=== PATIENT | female | born 1945 | race Caucasian/White ===

== ENCOUNTER 2022-05-20 12:44 | Inpatient (IN) | payer MEDICARE ==
[2022-05-20] MEDS ORDERED: SODIUM CHLORIDE 0.9% 1000 ML 1,000 ML IV ONE (13:02)
[2022-05-20] MEDS ORDERED: MORPHINE 4 MG/1 ML INJ IV ONE (13:04)
[2022-05-20] MEDS ORDERED: ONDANSETRON 4 MG/2 ML INJ IV ONE ×2 (13:04→16:29)
--- NOTE | 2022-05-20 13:31 | XRay Report ---
XR chest 1V ap INDICATION / CLINICAL INFORMATION: Chest Pain. COMPARISON: None available. FINDINGS: SUPPORT DEVICES: None. HEART /PULMONARY VASCULATURE: No significant abnormality. LUNGS / PLEURA: Diminished lung volumes with bronchovascular crowding. No focal airspace consolidatio n. No sizable pleural effusion. No pneumothorax. ADDITIONAL FINDINGS: No significant additional findings. IMPRESSION: Suboptimal inspiration. No evidence of acute chest process. Signer Name: Ross Bucio MD Signed: 05/20/2022 1:27 PM Workstation Name: [id number]
[2022-05-20 14:38] LABS: Basophils % (Auto) 0.1 % (0.0-1.8); Eosinophils % (Auto) 0.3 % (0.0-4.3); Hematocrit 38.9 % (30.3-42.9); Hemoglobin 13.1 gm/dl (10.1-14.3); Lymphocytes # (Auto) 1.1 K/mm3 (1.2-5.4); Lymphocytes % (Auto) 6.7 % (13.4-35.0); Mean Corpuscular HGB Conc 34 % (30-34); Mean Corpuscular Volume 93 fl (79-97); Monocytes # (Auto) 0.8 K/mm3 (0.0-0.8); Monocytes % (Auto) 4.9 % (0.0-7.3); Platelet Count 218 K/mm3 (140-440); Red Blood Count 4.21 M/mm3 (3.65-5.03); Red Cell Distribution Width 13.2 % (13.2-15.2)
[2022-05-20 14:41] LABS: INR 0.93 (0.87-1.13)
[2022-05-20 15:15] LABS: Alanine Aminotransferase 17 units/L (7-56); Albumin 3.8 g/dL (3.9-5); Blood Urea Nitrogen 18 mg/dL (7-17); Calcium 8.6 mg/dL (8.4-10.2); Hemolysis Index 32
[2022-05-20 15:22] LABS: BUN/Creatinine Ratio 36
[2022-05-20] MEDS ORDERED: POTASSIUM CHLORIDE ER 20 MEQ TAB PO ONE (17:07)
[2022-05-20] MEDS ORDERED: MECLIZINE 25 MG TAB PO ONE (17:07)
[2022-05-20 17:24] LABS: C-Reactive Protein < 0.30 mg/dL (0.00-1.30)
[2022-05-20 17:34] LABS: Mucus,Urine FEW /HPF; WBC,Urine < 1.0 /HPF (0.0-6.0)
[2022-05-20 17:37] LABS: Amphetamine Screen,Urine Negative; Benzodiazepines Screen,Urine Negative; Cannabinoid Screen,Urine Negative; Cocaine Screen,Urine Negative; Methadone Screen,Urine Negative; Opiate Screen,Urine Negative
[2022-05-20 17:40] LABS: Color,Urine Straw (Yellow)
[2022-05-20 17:41] LABS: Bilirubin,Urine Negative (Negative); Blood,Urine Negative (Negative); Protein,Urine <15 mg/dL mg/dL (Negative); Urobilinogen,Urine < 2.0 mg/dL (<2.0)
--- NOTE | 2022-05-20 18:44 | History and Physical Report ---
History of Present Illness Chief complaint: She is weak History of present illness: 77 YO Female with Vascular Dementia, Cerebral Atherosclerosis, HTN, Malnutrition presents to ED for evaluation. Patient is confused with diminished cognition and provides minimal history. Patient reports "I feel dizzy". Additional h istory provided by EMS staff, ED staff, as well as patient family was at bedside during exam and interview. Patient granddaughter reports that patient has experienced increased weakness, diminished oral intake, nausea, and multiple episodes of vomiting, and multiple episodes of dizziness over the past 2 days. EMS was notified and upon arrival the patient was found to be in distress and subsequently transported to [facility] for further care and evaluation of the aforementioned symptoms. The patient was seen and evaluated in the emergency department. All lab and imaging studies reviewed. Patient found to have suprapubic tenderness as well as clinical findings consistent with urinary tract infection complicated by systemic inflammatory response syndrome, metabolic encephalopathy, and malnutrition. Patient admitted to medical floor and initiated on IV antibiotic therapy due to increased risk of worsening symptoms and for medical stabilization. No further history is obtainable. No reports of fever, chills, chest pain, palpitation, productive cough, skin rash, recent contact, known exposure to COVID-19. No prior admission for review. No medication listed at time of admission for reconciliation. Advanced care planning conducted in ED. Past History Past Medical History: hypertension Past Surgical History: No surgical history, Other (Reviewed) Social history: , lives with family. denies: smoking, alcohol abuse, prescription drug abuse Family history: hypertension Medications and Allergies Allergies Allergy/AdvReac Type Severity Reaction Status Date / Time No Known Allergies Allergy Unverified 05/20/22 12:54 Review of Systems ROS unobtainable: due to mental status Exam - Constitutional Vitals: Temp Pulse Resp BP Pulse Ox 97.4 F L 54 L 14 150/79 100 05/20/22 12:49 05/20/22 16:15 05/20/22 16:15 05/20/22 16:15 05/20/22 16:15 General appearance: Present: mild distress - EENT Eyes: Present: PERRL ENT: hearing intact, clear oral mucosa - Neck Neck: Present: supple, normal ROM - Respiratory Respiratory effort: normal Respiratory: bilateral: CTA - Cardiovascular Heart Sounds: Present: S1 & S2. Absent: rub, click - Extremities Extremities: pulses symmetrical, No edema Peripheral Pulses: within normal limits - Abdominal General gastrointestinal: Present: soft, tender Localized gastrointestinal: tender: suprapubic Female genitourinary: Present: normal - Integumentary Integumentary: Present: clear, dry, clammy, decreased turgor - Musculoskeletal Musculoskeletal: generalized weakness - Psychiatric Psychiatric: no appropriate mood/affect, no intact judgment & insight, no memory intact HEART Score - HEART Score Troponin: Troponin T < 0.010 ng/mL (0.00-0.029) 05/20/22 13:31 Results - Labs CBC & Chem 7: 05/20/22 13:31 05/20/22 13:31 Labs: Abnormal lab results 05/20/22 05/20/22 Range/Units 13:31 13:31 WBC 16.1 H (4.5-11.0) K/mm3 Lymph % (Auto) 6.7 L (13.4-35.0) % Lymph # (Auto) 1.1 L (1.2-5.4) K/mm3 Seg Neutrophils % 88.0 H (40.0-70.0) % Seg Neutrophils # 14.2 H (1.8-7.7) K/mm3 Potassium 3.0 L (3.6-5.0) mmol/L BUN 18 H (7-17) mg/dL Creatinine 0.5 L (0.6-1.2) mg/dL Glucose 149 H (65-100) mg/dL Albumin 3.8 L (3.9-5) g/dL Assessment and Plan - Patient Problems (1) SIRS (systemic inflammatory response syndrome) Current Visit: Yes Status: Acute Plan to address problem: IV antibiotic therapy, CBC, CMP, chest x-ray, urinalysis, IV fluid resuscitation therapy, repeat CBC in AM. (2) UTI (urinary tract infection) Current Visit: Yes Status: Acute Qualifiers: Encounter type: initial encounter Plan to address problem: Urinalysis, IV antibiotic therapy, IV fluid resuscitation therapy. (3) Metabolic encephalopathy Current Visit: Yes Status: Acute Plan to address problem: CT scan head, neuro check, seizure precaution, aspiration precaution, fall precautions, regular resuscitation therapy. (4) Volume depletion Current Visit: Yes Status: Acute Plan to address problem: BMP, IV fluid resuscitation therapy, urine output every shift, monitor fluid balance, repeat BMP in AM. (5) Malnutrition Current Visit: Yes Status: Acute Qualifiers: Protein-calorie malnutrition severity: mild Plan to address problem: Increase protein intake, dietary supplementation. (6) Vascular dementia Current Visit: Yes Status: Acute Qualifiers: Dementia behavioral disturbance: without behavioral disturbance Qualified Code(s): F01.50 - Vascular dementia without behavioral disturbance Plan to address problem: Verbal prompting, verbal redirection, benzodiazepine therapy as clinically indicated. (7) Cerebral atherosclerosis Current Visit: Yes Status: Acute Plan to address problem: Risk factor reduction, antiplatelet therapy as clinically indicated (8) DVT prophylaxis Current Visit: Yes Status: Acute Plan to address problem: SCD to bilateral lower extremities while in bed (9) Advance care planning Current Visit: Yes Status: Acute Plan to address problem: Disease education data, care plan discussed, diagnosis discussed, prognosis discussed, patient is full code. Patient family acknowledges understanding agreement with care plan, +30 minutes. (10) Preventative health care Current Visit: Yes Status: Acute Plan to address problem: Patient family counseled regarding risk factor reduction, home safety, out patient follow-up with primary care physician for all age and risk factor appropriate screening test. +30 minutes.
[2022-05-20] MEDS ORDERED: oxyCODONE /ACETAMINOPHEN 5-325MG TAB PO PRN (19:16)
[2022-05-20] MEDS ORDERED: HYDROmorphone 0.5 MG/0.5 ML INJ IV PRN (19:16)
[2022-05-20] MEDS ORDERED: ALBUTEROL 2.5 MG/3 ML NEBU IH PRN (19:16)
[2022-05-20] MEDS ORDERED: ONDANSETRON 4 MG/2 ML INJ IV PRN (19:16)
[2022-05-20] MEDS: cefTRIAXone/NS 1 GM/50 ML 1 GM/50 ML BAG IV SCH (19:54)
--- NOTE | 2022-05-20 19:54 | Emergency Department Report ---
ED General Adult HPI - General Chief complaint: Nausea/Vomiting/Diarrhea Stated complaint: NAUSEA/VOMITING/BLURRED VISION PUI?: No Time Seen by Provider: 05/20/22 12:59 Source: EMS Mode of arrival: Stretcher Limitations: Language Barrier - History of Present Illness Initial comments: N/V, blurred vision x 2 days, GONZALES, dizziness history is obtained from Grand daughter , she started having nausea nd vomiting without abdominal pain , she feels dizzy , , unable to stand up -: Gradual, hour(s) Severity scale (0 -10): 8 Improves with: none Worsens with: none Associated Symptoms: headaches, nausea/vomiting, weakness. denies: denies other symptoms, confusion, chest pain, cough - Related Data Allergies Allergy/AdvReac Type Severity Reaction Status Date / Time No Known Allergies Allergy Unverified 05/20/22 12:54 ED Review of Systems ROS: Stated complaint: NAUSEA/VOMITING/BLURRED VISION Other details as noted in HPI Comment: Unobtainable due to pts medical conditions ED Past Medical Hx - Past Medical History Previous Medical History?: Yes Hx Hypertension: Yes - Surgical History Past Surgical History?: No ED Physical Exam - General Limitations: Language Barrier General appearance: alert, in distress - Head Head exam: Present: atraumatic, normocephalic - Eye Eye exam: Present: normal appearance - ENT ENT exam: Present: mucous membranes moist - Neck Neck exam: Present: normal inspection - Respiratory Respiratory exam: Present: normal lung sounds bilaterally. Absent: respiratory distress - Cardiovascular Cardiovascular Exam: Present: normal rhythm, bradycardia. Absent: systolic murmur, diastolic murmur, rubs, gallop - GI/Abdominal GI/Abdominal exam: Present: soft, normal bowel sounds - Extremities Exam Extremities exam: Present: normal inspection - Back Exam Back exam: Present: normal inspection - Neurological Exam Neurological exam: Present: alert, oriented X3 - Psychiatric Psychiatric exam: Present: anxious - Skin Skin exam: Present: warm, dry, intact, normal color. Absent: rash ED Course Vital Signs 05/20/22 05/20/22 05/20/22 12:49 13:08 13:15 Temperature 97.4 F L Pulse Rate 58 L 54 L Respiratory 18 21 Rate Blood Pressure 143/76 Blood Pressure 156/82 [Left] O2 Sat by Pulse 95 92 92 Oximetry 05/20/22 05/20/22 05/20/22 13:31 13:45 14:01 Temperature Pulse Rate 60 65 65 Respiratory 16 13 13 Rate Blood Pressure 165/78 165/78 161/77 Blood Pressure [Left] O2 Sat by Pulse 84 87 79 L Oximetry 05/20/22 05/20/22 05/20/22 14:15 14:31 14:45 Temperature Pulse Rate 54 L 57 L 52 L Respiratory 19 15 13 Rate Blood Pressure 163/79 162/78 162/78 Blood Pressure [Left] O2 Sat by Pulse 99 98 100 Oximetry 05/20/22 05/20/22 05/20/22 15:01 15:15 15:31 Temperature Pulse Rate 55 L 54 L 51 L Respiratory 16 13 15 Rate Blood Pressure 161/77 162/84 150/79 Blood Pressure [Left] O2 Sat by Pulse 100 100 99 Oximetry 05/20/22 05/20/22 16:09 16:15 Temperature Pulse Rate 55 L 54 L Respiratory 14 Rate Blood Pressure 150/79 150/79 Blood Pressure [Left] O2 Sat by Pulse 100 Oximetry ED Medical Decision Making - Lab Data Result diagrams: 05/20/22 13:31 05/20/22 13:31 - EKG Data -: EKG Interpreted by Al EKG shows normal: sinus rhythm Rate: bradycardia - EKG Data Interpretation: other (prolonged MT interval ) - Radiology Data Radiology results: report reviewed, image reviewed - Medical Decision Making work up showed : - intractable nausea and vomiting : fluids given zofran twice - Vertogo: mecklizine given _ hypoaklemia : replaced CT head and abdomen unremarkable , Critical care attestation.: If time is entered above; I have spent that time in minutes in the direct care of this critically ill patient, excluding procedure time. ED Disposition Clinical Impression: Intractable nausea and vomiting, Hypokalemia, Metabolic encephalopathy, Diverticulosis, Leukocytosis Disposition: ADMITTED INPATIENT Is pt being admited?: Yes Does the pt Need Aspirin: No Condition: Stable Referrals: PRIMARY CARE, [Primary Care Provider] - 3-5 Days
[2022-05-21] MEDS: SODIUM CHLORIDE 0.9% 1000 ML 1,000 ML IV SCH ×2 (03:52→16:35)
[2022-05-21 06:39] LABS: Basophils % (Auto) 0.2 % (0.0-1.8); Eosinophils # (Auto) 0.1 K/mm3 (0.0-0.4); Eosinophils % (Auto) 0.5 % (0.0-4.3); Hematocrit 37.1 % (30.3-42.9); Hemoglobin 12.5 gm/dl (10.1-14.3); Lymphocytes # (Auto) 1.6 K/mm3 (1.2-5.4); Lymphocytes % (Auto) 13.5 % (13.4-35.0); Mean Corpuscular HGB Conc 34 % (30-34); Mean Corpuscular Volume 93 fl (79-97); Monocytes # (Auto) 0.6 K/mm3 (0.0-0.8); Platelet Count 212 K/mm3 (140-440); Red Cell Distribution Width 13.2 % (13.2-15.2)
[2022-05-21 06:58] LABS: Blood Urea Nitrogen 17 mg/dL (7-17); Calcium 8.2 mg/dL (8.4-10.2); Hemolysis Index 4
[2022-05-21 07:01] LABS: BUN/Creatinine Ratio 28
[2022-05-21] MEDS: cefTRIAXone/NS 1 GM/50 ML 1 GM/50 ML BAG IV SCH (09:00)
--- NOTE | 2022-05-21 11:52 | Progress Note ---
Assessment and Plan Assessment and plan: 77 YO Female with Vascular Dementia, Cerebral Atherosclerosis, HTN, Malnutrition presents to ED for evaluation. Patient is confused with diminished cognition and provides minimal history. 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 Patient reportedly on exam has some suprapubic and abdominal tenderness. Patient initially admitted with diagnosis of UTI. However, urinalysis is not indicative of UTI. SIRS Leukocytosis Hypokalemia Acute encephalopathy Abdominal pain 05/21/2022. Await CT scan of the abdomen for further evaluation. Patient on admission with significant leukocytosis which has improved. No obvious source of infection at this time. Continue empiric IV antibiotics. PT/OT evaluation History Interval history: No new issues overnight Hospitalist Physical - Constitutional Vitals: Temp Pulse Resp BP Pulse Ox 99.3 F 67 18 151/82 94 05/21/22 09:17 05/21/22 09:17 05/21/22 09:17 05/21/22 09:17 05/21/22 09:17 General appearance: Present: mild distress - EENT Eyes: Present: PERRL, EOM intact ENT: hearing intact, clear oral mucosa, dentition normal - Neck Neck: Present: supple, normal ROM - Respiratory Respiratory effort: normal Respiratory: bilateral: CTA - Cardiovascular Rhythm: regular Heart Sounds: Present: S1 & S2. Absent: gallop, rub - Extremities Extremities: no ischemia, No edema, Full ROM - Abdominal General gastrointestinal: soft, non-tender, non-distended, normal bowel sounds - Integumentary Integumentary: Present: clear, warm, dry - Neurologic Neurologic: CNII-XII intact, moves all extremities HEART Score - HEART Score Troponin: Troponin T < 0.010 ng/mL (0.00-0.029) 05/20/22 13:31 Results - Labs CBC & Chem 7: 05/21/22 05:57 05/21/22 05:57 Labs: Laboratory Last Values WBC 12.2 K/mm3 (4.5-11.0) H 05/21/22 05:57 RBC 4.00 M/mm3 (3.65-5.03) 05/21/22 05:57 Hgb 12.5 gm/dl (10.1-14.3) 05/21/22 05:57 Hct 37.1 % (30.3-42.9) 05/21/22 05:57 MCV 93 fl (79-97) 05/21/22 05:57 MCH 31 pg (28-32) 05/21/22 05:57 MCHC 34 % (30-34) 05/21/22 05:57 RDW 13.2 % (13.2-15.2) 05/21/22 05:57 Plt Count 212 K/mm3 (140-440) 05/21/22 05:57 Lymph % (Auto) 13.5 % (13.4-35.0) 05/21/22 05:57 Lake % (Auto) 5.0 % (0.0-7.3) 05/21/22 05:57 Eos % (Auto) 0.5 % (0.0-4.3) 05/21/22 05:57 Baso % (Auto) 0.2 % (0.0-1.8) 05/21/22 05:57 Lymph # (Auto) 1.6 K/mm3 (1.2-5.4) 05/21/22 05:57 Lake # (Auto) 0.6 K/mm3 (0.0-0.8) 05/21/22 05:57 Eos # (Auto) 0.1 K/mm3 (0.0-0.4) 05/21/22 05:57 Baso # (Auto) 0.0 K/mm3 (0.0-0.1) 05/21/22 05:57 Seg Neutrophils % 80.8 % (40.0-70.0) H 05/21/22 05:57 Seg Neutrophils # 9.9 K/mm3 (1.8-7.7) H 05/21/22 05:57 PT 13.8 Sec. (12.2-14.9) 05/20/22 13:31 INR 0.93 (0.87-1.13) 05/20/22 13:31 Sodium 139 mmol/L (137-145) 05/21/22 05:57 Potassium 4.0 mmol/L (3.6-5.0) D 05/21/22 05:57 Chloride 105.1 mmol/L (98-107) 05/21/22 05:57 Carbon Dioxide 24 mmol/L (22-30) 05/21/22 05:57 Anion Gap 14 mmol/L 05/21/22 05:57 BUN 17 mg/dL (7-17) 05/21/22 05:57 Creatinine 0.6 mg/dL (0.6-1.2) 05/21/22 05:57 Estimated GFR > 60 ml/min 05/21/22 05:57 BUN/Creatinine Ratio 28 % 05/21/22 05:57 Glucose 94 mg/dL (65-100) 05/21/22 05:57 Calcium 8.2 mg/dL (8.4-10.2) L 05/21/22 05:57 Total Bilirubin 0.70 mg/dL (0.1-1.2) 05/20/22 13:31 AST 17 units/L (5-40) 05/20/22 13:31 ALT 17 units/L (7-56) 05/20/22 13:31 Alkaline Phosphatase 65 units/L (35-129) 05/20/22 13:31 Total Creatine Kinase 113 units/L (30-135) 05/20/22 13:31 Troponin T < 0.010 ng/mL (0.00-0.029) 05/20/22 13:31 C-Reactive Protein < 0.30 mg/dL (0.00-1.30) 05/20/22 13:31 NT-Pro-B Natriuret Pep 27.85 pg/mL (0-900) 05/20/22 13:31 Total Protein 6.7 g/dL (6.3-8.2) 05/20/22 13:31 Albumin 3.8 g/dL (3.9-5) L 05/20/22 13:31 Albumin/Globulin Ratio 1.3 % 05/20/22 13:31 Lipase 39 units/L (13-60) 05/20/22 13:31 Urine Color Straw (Yellow) 05/20/22 17:13 Urine Turbidity Clear (Clear) 05/20/22 17:13 Urine pH 5.0 (5.0-7.0) 05/20/22 17:13 Ur Specific Noel 1.005 (1.003-1.030) 05/20/22 17:13 Urine Protein <15 mg/dl mg/dL (Negative) 05/20/22 17:13 Urine Glucose (UA) Negative mg/dL (Negative) 05/20/22 17:13 Urine Ketones Negative mg/dL (Negative) 05/20/22 17:13 Urine Blood Negative (Negative) 05/20/22 17:13 Urine Nitrite Negative (Negative) 05/20/22 17:13 Urine Bilirubin Negative (Negative) 05/20/22 17:13 Urine Urobilinogen < 2.0 mg/dL (<2.0) 05/20/22 17:13 Ur Leukocyte Esterase Negative (Negative) 05/20/22 17:13 Urine WBC (Auto) < 1.0 /HPF (0.0-6.0) 05/20/22 17:13 Urine RBC (Auto) 1.0 /HPF (0.0-6.0) 05/20/22 17:13 U Epithel Cells (Auto) < 1.0 /HPF (0-13.0) 05/20/22 17:13 Urine Mucus Few /HPF 05/20/22 17:13 Urine Opiates Screen Negative 05/20/22 17:13 Urine Methadone Screen Negative 05/20/22 17:13 Ur Barbiturates Screen Negative 05/20/22 17:13 Ur Phencyclidine Scrn Negative 05/20/22 17:13 Ur Amphetamines Screen Negative 05/20/22 17:13 U Benzodiazepines Scrn Negative 05/20/22 17:13 Urine Cocaine Screen Negative 05/20/22 17:13 U Marijuana (THC) Screen Negative 05/20/22 17:13 Drugs of Abuse Note Disclamer 05/20/22 17:13 Hobbs/IV: Voiding Method Indwelling Catheter Active Medications - Current Medications Current Medications: Generic Name Dose Route Start Last Admin Trade Name Freq PRN Reason Stop Dose Admin Acetaminophen 650 mg 05/20/22 19:16 Acetaminophen 325 Mg Tab PO Q4H PRN Pain MILD(1-3)/Fever >100.5/GONZALES Albuterol 2.5 mg 05/20/22 19:16 Albuterol 2.5 Mg/3 Ml Nebu IH Q4HRT PRN Shortness Of Breath Hydromorphone HCl 0.5 mg 05/20/22 19:16 Hydromorphone 0.5 Mg/0.5 Ml Inj IV Q23H PRN Pain , Severe (7-10) Sodium Chloride 1,000 mls @ 100 mls/hr 05/20/22 19:30 05/21/22 03:52 Nacl 0.9% 1000 Ml IV 100 mls/hr DIRECT CHRISTIN Administration Ceftriaxone Sodium 1 gm in 50 mls @ 100 mls/hr 05/20/22 19:18 05/21/22 09:00 Rocephin/Ns 1 Gm/50 Ml IV 100 mls/hr Q24HR CHRISTIN Administration Protocol Ondansetron HCl 4 mg 05/20/22 19:16 Ondansetron 4 Mg/2 Ml Inj IV Q8H PRN Nausea And Vomiting Oxycodone/Acetaminophen 1 tab 05/20/22 19:16 Oxycodone /Acetaminophen 5-325mg Tab PO Q16H PRN Pain, Moderate (4-6) Sodium Chloride 10 ml 05/20/22 22:00 05/21/22 09:01 Sodium Chloride 0.9% 10 Ml Flush Syringe IV 10 ml BID CHRISTIN Administration Sodium Chloride 10 ml 05/20/22 19:16 Sodium Chloride 0.9% 10 Ml Flush Syringe IV PRN PRN LINE FLUSH
[2022-05-22] MEDS: SODIUM CHLORIDE 0.9% 1000 ML 1,000 ML IV SCH ×2 (03:04→16:35)
--- NOTE | 2022-05-22 08:09 | Cat Scan Report ---
CT head/brain wo con INDICATION / CLINICAL INFORMATION: 77 years Female; pain. TECHNIQUE: Routine CT head without contrast. All CT scans at this location are performed using CT dos e reduction for ALARA by means of automated exposure control. COMPARISON: None. FINDINGS: BRAIN / INTRACRANIAL CONTENTS: Small lacunar infarcts seen in the periventricular white matter/superi or gangliocapsular region on the [id number] without diffusion imaging by MRI. Otherwise, no acute hemorrhage, mass effect, midline shift, hydrocephalus, or acute, large territori al infarct. There are areas of decreased attenuation in the white matter of the cerebral hemispheres. These are n onspecific findings and may be related to microangiopathy (hypertension, diabetes, atherosclerosis), given the patient's age. No significant white matter abnormality seen. CRANIOCERVICAL JUNCTION: No significant abnormality. ORBITS: No significant abnormality of visualized orbits. SINUSES / MASTOIDS: Mild to moderate mucosal thickening in the ethmoids. ADDITIONAL FINDINGS: Atherosclerotic disease is seen in the anterior and posterior circulation. IMPRESSION: 1. No focal mass, hemorrhage, hydrocephalus, or acute, large territorial infarct. Follow-up with diff usion imaging by MRI, as clinically warranted. Signer Name: Chano Thomson MD, III Signed: 05/20/2022 4:19 PM Workstation Name: [id number]
--- NOTE | 2022-05-22 08:57 | Cat Scan Report ---
CT ABDOMEN AND PELVIS WITH CONTRAST HISTORY: pain 70ml of [id number] COMPARISON: None. TECHNIQUE: Axial CT images were obtained through the abdomen and pelvis after 70 cc of Omnipaque 300 IV contrast. Sagittal and coronal reformatted images. All CT scans at this location are performed usi ng CT dose reduction for ALARA by means of automated exposure control. FINDINGS: CT ABDOMEN: Lung Bases: Borderline heart size. Minor atelectatic changes in the lower lobes. Liver: No significant abnormality. Biliary: No significant abnormality. Spleen: No significant abnormality. Unenlarged. Pancreas: No significant abnormality. Adrenals: No significant abnormality. Kidneys: No significant abnormality. Lymphatics: No lymphadenopathy. Vasculature: Mild atherosclerotic disease in the abdominal aorta and iliac arteries without acute abn ormality. Bowel/Peritoneum: No significant abnormality. No free air. No free fluid. Mild diverticulosis of the colon is noted. The appendix is unremarkable. CT PELVIS: : The bladder and adnexa are unremarkable. Mild uterine fibroid disease is noted. Osseous Structures: No acute abnormality. Mild thoracolumbar spondylosis. Additional Findings: None IMPRESSION: No acute inflammatory process is identified. Borderline heart size. Mild colonic diverticulosis. Mild uterine fibroid disease. Signer Name: Ildefonso Summers Jr, MD Signed: 05/20/2022 4:20 PM Workstation Name: [id number]
[2022-05-22] MEDS: cefTRIAXone/NS 1 GM/50 ML 1 GM/50 ML BAG IV SCH (10:11)
--- NOTE | 2022-05-22 10:33 | Progress Note ---
Assessment and Plan Assessment and plan: 77 YO Female with Vascular Dementia, Cerebral Atherosclerosis, HTN, Malnutrition presents to ED for evaluation. Patient is confused with diminished cognition and provides minimal history. 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 Patient reportedly on exam has some suprapubic and abdominal tenderness. Patient initially admitted with diagnosis of UTI. However, urinalysis is not indicative of UTI. SIRS Leukocytosis Hypokalemia Acute encephalopathy Abdominal pain 05/21/2022. Await CT scan of the abdomen for further evaluation. Patient on admission with significant leukocytosis which has improved. No obvious source of infection at this time. Continue empiric IV antibiotics. PT/OT evaluation 05/22/2022. CT scan of the abdomen negative. Patient's mental status is back to baseline per the daughter who is at the bedside. I suspect patient had more or less dizziness than true confusion. Daughter reports that patient still complains of dizziness. I suspect patient may have a component BPV. Await physical therapy evaluation. Start meclizine. Patient with no lateralizing signs or symptoms or focal findings suggestive of CVA History Interval history: No new issues overnight Hospitalist Physical - Constitutional Vitals: Temp Pulse Resp BP Pulse Ox 98.2 F 58 L 16 162/83 93 05/22/22 07:59 05/22/22 07:59 05/22/22 07:59 05/22/22 07:59 05/22/22 07:59 General appearance: Present: mild distress - EENT Eyes: Present: PERRL, EOM intact ENT: hearing intact, clear oral mucosa, dentition normal - Neck Neck: Present: supple, normal ROM - Respiratory Respiratory effort: normal Respiratory: bilateral: CTA - Cardiovascular Rhythm: regular Heart Sounds: Present: S1 & S2. Absent: gallop, rub - Extremities Extremities: no ischemia, No edema, Full ROM - Abdominal General gastrointestinal: soft, non-tender, non-distended, normal bowel sounds - Integumentary Integumentary: Present: clear, warm, dry - Neurologic Neurologic: CNII-XII intact, moves all extremities HEART Score - HEART Score Troponin: Troponin T < 0.010 ng/mL (0.00-0.029) 05/20/22 13:31 Results - Labs CBC & Chem 7: 05/21/22 05:57 05/21/22 05:57 Labs: Laboratory Last Values WBC 12.2 K/mm3 (4.5-11.0) H 05/21/22 05:57 RBC 4.00 M/mm3 (3.65-5.03) 05/21/22 05:57 Hgb 12.5 gm/dl (10.1-14.3) 05/21/22 05:57 Hct 37.1 % (30.3-42.9) 05/21/22 05:57 MCV 93 fl (79-97) 05/21/22 05:57 MCH 31 pg (28-32) 05/21/22 05:57 MCHC 34 % (30-34) 05/21/22 05:57 RDW 13.2 % (13.2-15.2) 05/21/22 05:57 Plt Count 212 K/mm3 (140-440) 05/21/22 05:57 Lymph % (Auto) 13.5 % (13.4-35.0) 05/21/22 05:57 [place] % (Auto) 5.0 % (0.0-7.3) 05/21/22 05:57 Eos % (Auto) 0.5 % (0.0-4.3) 05/21/22 05:57 Baso % (Auto) 0.2 % (0.0-1.8) 05/21/22 05:57 Lymph # (Auto) 1.6 K/mm3 (1.2-5.4) 05/21/22 05:57 [place] # (Auto) 0.6 K/mm3 (0.0-0.8) 05/21/22 05:57 Eos # (Auto) 0.1 K/mm3 (0.0-0.4) 05/21/22 05:57 Baso # (Auto) 0.0 K/mm3 (0.0-0.1) 05/21/22 05:57 Seg Neutrophils % 80.8 % (40.0-70.0) H 05/21/22 05:57 Seg Neutrophils # 9.9 K/mm3 (1.8-7.7) H 05/21/22 05:57 PT 13.8 Sec. (12.2-14.9) 05/20/22 13:31 INR 0.93 (0.87-1.13) 05/20/22 13:31 Sodium 139 mmol/L (137-145) 05/21/22 05:57 Potassium 4.0 mmol/L (3.6-5.0) D 05/21/22 05:57 Chloride 105.1 mmol/L (98-107) 05/21/22 05:57 Carbon Dioxide 24 mmol/L (22-30) 05/21/22 05:57 Anion Gap 14 mmol/L 05/21/22 05:57 BUN 17 mg/dL (7-17) 05/21/22 05:57 Creatinine 0.6 mg/dL (0.6-1.2) 05/21/22 05:57 Estimated GFR > 60 ml/min 05/21/22 05:57 BUN/Creatinine Ratio 28 % 05/21/22 05:57 Glucose 94 mg/dL (65-100) 05/21/22 05:57 Calcium 8.2 mg/dL (8.4-10.2) L 05/21/22 05:57 Total Bilirubin 0.70 mg/dL (0.1-1.2) 05/20/22 13:31 AST 17 units/L (5-40) 05/20/22 13:31 ALT 17 units/L (7-56) 05/20/22 13:31 Alkaline Phosphatase 65 units/L (35-129) 05/20/22 13:31 Total Creatine Kinase 113 units/L (30-135) 05/20/22 13:31 Troponin T < 0.010 ng/mL (0.00-0.029) 05/20/22 13:31 C-Reactive Protein < 0.30 mg/dL (0.00-1.30) 05/20/22 13:31 NT-Pro-B Natriuret Pep 27.85 pg/mL (0-900) 05/20/22 13:31 Total Protein 6.7 g/dL (6.3-8.2) 05/20/22 13:31 Albumin 3.8 g/dL (3.9-5) L 05/20/22 13:31 Albumin/Globulin Ratio 1.3 % 05/20/22 13:31 Lipase 39 units/L (13-60) 05/20/22 13:31 Urine Color Straw (Yellow) 05/20/22 17:13 Urine Turbidity Clear (Clear) 05/20/22 17:13 Urine pH 5.0 (5.0-7.0) 05/20/22 17:13 Ur Specific [place] 1.005 (1.003-1.030) 05/20/22 17:13 Urine Protein <15 mg/dl mg/dL (Negative) 05/20/22 17:13 Urine Glucose (UA) Negative mg/dL (Negative) 05/20/22 17:13 Urine Ketones Negative mg/dL (Negative) 05/20/22 17:13 Urine Blood Negative (Negative) 05/20/22 17:13 Urine Nitrite Negative (Negative) 05/20/22 17:13 Urine Bilirubin Negative (Negative) 05/20/22 17:13 Urine Urobilinogen < 2.0 mg/dL (<2.0) 05/20/22 17:13 Ur Leukocyte Esterase Negative (Negative) 05/20/22 17:13 Urine WBC (Auto) < 1.0 /HPF (0.0-6.0) 05/20/22 17:13 Urine RBC (Auto) 1.0 /HPF (0.0-6.0) 05/20/22 17:13 U Epithel Cells (Auto) < 1.0 /HPF (0-13.0) 05/20/22 17:13 Urine Mucus Few /HPF 05/20/22 17:13 Urine Opiates Screen Negative 05/20/22 17:13 Urine Methadone Screen Negative 05/20/22 17:13 Ur Barbiturates Screen Negative 05/20/22 17:13 Ur Phencyclidine Scrn Negative 05/20/22 17:13 Ur Amphetamines Screen Negative 05/20/22 17:13 U Benzodiazepines Scrn Negative 05/20/22 17:13 Urine Cocaine Screen Negative 05/20/22 17:13 U Marijuana (THC) Screen Negative 05/20/22 17:13 Drugs of Abuse Note Disclamer 05/20/22 17:13 Hobbs/IV: Voiding Method Indwelling Catheter Active Medications - Current Medications Current Medications: Generic Name Dose Route Start Last Admin Trade Name Freq PRN Reason Stop Dose Admin Acetaminophen 650 mg 05/20/22 19:16 Acetaminophen 325 Mg Tab PO Q4H PRN Pain MILD(1-3)/Fever >100.5/GONZALES Albuterol 2.5 mg 05/20/22 19:16 Albuterol 2.5 Mg/3 Ml Nebu IH Q4HRT PRN Shortness Of Breath Hydromorphone HCl 0.5 mg 05/20/22 19:16 Hydromorphone 0.5 Mg/0.5 Ml Inj IV Q23H PRN Pain , Severe (7-10) Sodium Chloride 1,000 mls @ 100 mls/hr 05/20/22 19:30 05/22/22 03:04 Nacl 0.9% 1000 Ml IV 100 mls/hr DIRECT CHRISTIN Administration Ceftriaxone Sodium 1 gm in 50 mls @ 100 mls/hr 05/20/22 19:18 05/22/22 10:11 Rocephin/Ns 1 Gm/50 Ml IV 100 mls/hr Q24HR CHRISTIN Administration Protocol Ondansetron HCl 4 mg 05/20/22 19:16 Ondansetron 4 Mg/2 Ml Inj IV Q8H PRN Nausea And Vomiting Oxycodone/Acetaminophen 1 tab 05/20/22 19:16 Oxycodone /Acetaminophen 5-325mg Tab PO Q16H PRN Pain, Moderate (4-6) Sodium Chloride 10 ml 05/20/22 22:00 05/22/22 10:12 Sodium Chloride 0.9% 10 Ml Flush Syringe IV 10 ml BID CHRISTIN Administration Sodium Chloride 10 ml 05/20/22 19:16 Sodium Chloride 0.9% 10 Ml Flush Syringe IV PRN PRN LINE FLUSH Nutrition/Malnutrition Assess - Dietary Evaluation Nutrition/Malnutrition Findings: Nutrition Notes Start: 05/21/22 17:16 Freq: Status: Active Protocol: Document 05/21/22 17:16 GIOVANY (Rec: 05/21/22 17:31 GIOVANY [id number]) Nutrition Notes 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 Current Diet Cardiac Diet (since D 05/20). Labs/Tests 05/21: Ca 8.2. Pertinent Medications 05/21: Nutritionally unremarkable. 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 Weight Status Appropriate Subjective/Other Information RD consult for risk of malnutrition assessment. No reports available of Pt's PO intake of meals at the time , will assess at F/U. Pt is on Room Air, O2 saturation @ 97%, according to Physical Assessment History notes. Pt has missing teeth, according to Physical Assessment History notes. Pt presents an unspecified area of concern for skin risk at the time, according to Physical Assessment History notes. Pt shows no signs of concern for risk of malnutrition at the time, according to Physical Assessment History notes. Percent of energy/protein needs met: Prescribed Cardiac Diet provides for energy/protein needs (2,230 Kcal/85 g) during LOS. Burn Absent Trauma Absent GI Symptoms None Food Allergy No Skin Integrity/Comment Unspecifies area of concern. 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 No Is Patient Ambulatory and/or Out of Bed Yes REE-([place]-ambulatory/OOB) [ 1379.300 NUTR.MSJOOB] Kcal/Kg value to use for calculation 25 Approximate Energy Requirements Using 1465 kcal/Kg Calculation Used for Recommendations Kcal/kg Additional Notes Protein: 1-1.2 g/Kg ABW; 59-71 g/day. Fluids: 1 ml/Kcal, or as per MD. Nutrition Intervention Change Diet Order: Continue Cardiac Diet as tolerated. Follow-Up By: 05/28/22 Additional Comments Continue monitoring food tolerance, %PO intake of meals , and BM.
[2022-05-22] MEDS: ACETAMINOPHEN 325 MG TAB PO PRN (13:13)
[2022-05-22] MEDS: MECLIZINE 25 MG TAB PO PRN (13:13)
[2022-05-23 06:21] LABS: Basophils % (Auto) 0.6 % (0.0-1.8); Eosinophils # (Auto) 0.1 K/mm3 (0.0-0.4); Eosinophils % (Auto) 1.6 % (0.0-4.3); Hematocrit 39.7 % (30.3-42.9); Hemoglobin 13.1 gm/dl (10.1-14.3); Lymphocytes # (Auto) 1.5 K/mm3 (1.2-5.4); Lymphocytes % (Auto) 19.4 % (13.4-35.0); Mean Corpuscular HGB Conc 33 % (30-34); Mean Corpuscular Volume 94 fl (79-97); Monocytes # (Auto) 0.5 K/mm3 (0.0-0.8); Monocytes % (Auto) 6.1 % (0.0-7.3); Platelet Count 184 K/mm3 (140-440); Red Blood Count 4.24 M/mm3 (3.65-5.03); Red Cell Distribution Width 13.1 % (13.2-15.2)
[2022-05-23 06:38] LABS: Blood Urea Nitrogen 11 mg/dL (7-17); Calcium 8.2 mg/dL (8.4-10.2); Hemolysis Index 10
[2022-05-23 06:40] LABS: BUN/Creatinine Ratio 22
[2022-05-23] MEDS: MECLIZINE 25 MG TAB PO PRN ×2 (09:35→18:15)
[2022-05-23] MEDS: cefTRIAXone/NS 1 GM/50 ML 1 GM/50 ML BAG IV SCH (10:00)
--- NOTE | 2022-05-23 10:54 | Progress Note ---
Assessment and Plan Assessment and plan: 77 YO Female with Vascular Dementia, Cerebral Atherosclerosis, HTN, Malnutrition presents to ED for evaluation. Patient is confused with diminished cognition and provides minimal history. 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 Patient reportedly on exam has some suprapubic and abdominal tenderness. Patient initially admitted with diagnosis of UTI. However, urinalysis is not indicative of UTI. Probable BPV SIRS Leukocytosis Hypokalemia Acute encephalopathy Abdominal pain 05/21/2022. Await CT scan of the abdomen for further evaluation. Patient on admission with significant leukocytosis which has improved. No obvious source of infection at this time. Continue empiric IV antibiotics. PT/OT evaluation 05/22/2022. CT scan of the abdomen negative. Patient's mental status is back to baseline per the daughter who is at the bedside. I suspect patient had more or less dizziness than true confusion. Daughter reports that patient still complains of dizziness. I suspect patient may have a component BPV. Await phy sical therapy evaluation. Start meclizine. Patient with no lateralizing signs or symptoms or focal findings suggestive of CVA 05/23/2022. Await physical therapy evaluation. Meclizine ordered for BPV. Check MRI to rule out CVA History Interval history: No new issues overnight Hospitalist Physical - Constitutional Vitals: Temp Pulse Resp BP Pulse Ox 98.3 F 52 L 16 161/81 92 05/23/22 07:42 05/23/22 07:42 05/23/22 03:55 05/23/22 07:42 05/23/22 07:42 General appearance: Present: no acute distress - EENT Eyes: Present: PERRL, EOM intact ENT: hearing intact, clear oral mucosa, dentition normal - Neck Neck: Present: supple, normal ROM - Respiratory Respiratory effort: normal Respiratory: bilateral: CTA - Cardiovascular Rhythm: regular Heart Sounds: Present: S1 & S2. Absent: gallop, rub - Extremities Extremities: no ischemia, No edema, Full ROM - Abdominal General gastrointestinal: soft, non-tender, non-distended, normal bowel sounds - Integumentary Integumentary: Present: clear, warm, dry - Neurologic Neurologic: CNII-XII intact, moves all extremities HEART Score - HEART Score Troponin: Troponin T < 0.010 ng/mL (0.00-0.029) 05/20/22 13:31 Results - Labs CBC & Chem 7: 05/23/22 05:12 05/23/22 05:12 Labs: Laboratory Last Values WBC 7.6 K/mm3 (4.5-11.0) 05/23/22 05:12 RBC 4.24 M/mm3 (3.65-5.03) 05/23/22 05:12 Hgb 13.1 gm/dl (10.1-14.3) 05/23/22 05:12 Hct 39.7 % (30.3-42.9) 05/23/22 05:12 MCV 94 fl (79-97) 05/23/22 05:12 MCH 31 pg (28-32) 05/23/22 05:12 MCHC 33 % (30-34) 05/23/22 05:12 RDW 13.1 % (13.2-15.2) L 05/23/22 05:12 Plt Count 184 K/mm3 (140-440) 05/23/22 05:12 Lymph % (Auto) 19.4 % (13.4-35.0) 05/23/22 05:12 [place] % (Auto) 6.1 % (0.0-7.3) 05/23/22 05:12 Eos % (Auto) 1.6 % (0.0-4.3) 05/23/22 05:12 Baso % (Auto) 0.6 % (0.0-1.8) 05/23/22 05:12 Lymph # (Auto) 1.5 K/mm3 (1.2-5.4) 05/23/22 05:12 [place] # (Auto) 0.5 K/mm3 (0.0-0.8) 05/23/22 05:12 Eos # (Auto) 0.1 K/mm3 (0.0-0.4) 05/23/22 05:12 Baso # (Auto) 0.0 K/mm3 (0.0-0.1) 05/23/22 05:12 Seg Neutrophils % 72.3 % (40.0-70.0) H 05/23/22 05:12 Seg Neutrophils # 5.5 K/mm3 (1.8-7.7) 05/23/22 05:12 PT 13.8 Sec. (12.2-14.9) 05/20/22 13:31 INR 0.93 (0.87-1.13) 05/20/22 13:31 Sodium 140 mmol/L (137-145) 05/23/22 05:12 Potassium 3.6 mmol/L (3.6-5.0) 05/23/22 05:12 Chloride 105.6 mmol/L (98-107) 05/23/22 05:12 Carbon Dioxide 23 mmol/L (22-30) 05/23/22 05:12 Anion Gap 15 mmol/L 05/23/22 05:12 BUN 11 mg/dL (7-17) 05/23/22 05:12 Creatinine 0.5 mg/dL (0.6-1.2) L 05/23/22 05:12 Estimated GFR > 60 ml/min 05/23/22 05:12 BUN/Creatinine Ratio 22 % 05/23/22 05:12 Glucose 106 mg/dL (65-100) H 05/23/22 05:12 Calcium 8.2 mg/dL (8.4-10.2) L 05/23/22 05:12 Total Bilirubin 0.70 mg/dL (0.1-1.2) 05/20/22 13:31 AST 17 units/L (5-40) 05/20/22 13:31 ALT 17 units/L (7-56) 05/20/22 13:31 Alkaline Phosphatase 65 units/L (35-129) 05/20/22 13:31 Total Creatine Kinase 113 units/L (30-135) 05/20/22 13:31 Troponin T < 0.010 ng/mL (0.00-0.029) 05/20/22 13:31 C-Reactive Protein < 0.30 mg/dL (0.00-1.30) 05/20/22 13:31 NT-Pro-B Natriuret Pep 27.85 pg/mL (0-900) 05/20/22 13:31 Total Protein 6.7 g/dL (6.3-8.2) 05/20/22 13:31 Albumin 3.8 g/dL (3.9-5) L 05/20/22 13:31 Albumin/Globulin Ratio 1.3 % 05/20/22 13:31 Lipase 39 units/L (13-60) 05/20/22 13:31 Urine Color Straw (Yellow) 05/20/22 17:13 Urine Turbidity Clear (Clear) 05/20/22 17:13 Urine pH 5.0 (5.0-7.0) 05/20/22 17:13 Ur Specific [place] 1.005 (1.003-1.030) 05/20/22 17:13 Urine Protein <15 mg/dl mg/dL (Negative) 05/20/22 17:13 Urine Glucose (UA) Negative mg/dL (Negative) 05/20/22 17:13 Urine Ketones Negative mg/dL (Negative) 05/20/22 17:13 Urine Blood Negative (Negative) 05/20/22 17:13 Urine Nitrite Negative (Negative) 05/20/22 17:13 Urine Bilirubin Negative (Negative) 05/20/22 17:13 Urine Urobilinogen < 2.0 mg/dL (<2.0) 05/20/22 17:13 Ur Leukocyte Esterase Negative (Negative) 05/20/22 17:13 Urine WBC (Auto) < 1.0 /HPF (0.0-6.0) 05/20/22 17:13 Urine RBC (Auto) 1.0 /HPF (0.0-6.0) 05/20/22 17:13 U Epithel Cells (Auto) < 1.0 /HPF (0-13.0) 05/20/22 17:13 Urine Mucus Few /HPF 05/20/22 17:13 Urine Opiates Screen Negative 05/20/22 17:13 Urine Methadone Screen Negative 05/20/22 17:13 Ur Barbiturates Screen Negative 05/20/22 17:13 Ur Phencyclidine Scrn Negative 05/20/22 17:13 Ur Amphetamines Screen Negative 05/20/22 17:13 U Benzodiazepines Scrn Negative 05/20/22 17:13 Urine Cocaine Screen Negative 05/20/22 17:13 U Marijuana (THC) Screen Negative 05/20/22 17:13 Drugs of Abuse Note Disclamer 05/20/22 17:13 Hobbs/IV: Voiding Method Indwelling Catheter Active Medications - Current Medications Current Medications: Generic Name Dose Route Start Last Admin Trade Name Freq PRN Reason Stop Dose Admin Acetaminophen 650 mg 05/20/22 19:16 05/22/22 13:13 Acetaminophen 325 Mg Tab PO 650 mg Q4H PRN Administration Pain MILD(1-3)/Fever >100.5/GONZALES Albuterol 2.5 mg 05/20/22 19:16 Albuterol 2.5 Mg/3 Ml Nebu IH Q4HRT PRN Shortness Of Breath Hydromorphone HCl 0.5 mg 05/20/22 19:16 Hydromorphone 0.5 Mg/0.5 Ml Inj IV Q23H PRN Pain , Severe (7-10) Sodium Chloride 1,000 mls @ 100 mls/hr 05/20/22 19:30 05/22/22 16:35 Nacl 0.9% 1000 Ml IV 100 mls/hr DIRECT CHRISTIN Administration Ceftriaxone Sodium 1 gm in 50 mls @ 100 mls/hr 05/20/22 19:18 05/22/22 10:11 Rocephin/Ns 1 Gm/50 Ml IV 100 mls/hr Q24HR CHRISTIN Administration Protocol Meclizine HCl 25 mg 05/22/22 11:00 05/22/22 13:13 Meclizine 25 Mg Tab PO 25 mg Q8H PRN Administration Vertigo Ondansetron HCl 4 mg 05/20/22 19:16 Ondansetron 4 Mg/2 Ml Inj IV Q8H PRN Nausea And Vomiting Oxycodone/Acetaminophen 1 tab 05/20/22 19:16 Oxycodone /Acetaminophen 5-325mg Tab PO Q16H PRN Pain, Moderate (4-6) Sodium Chloride 10 ml 05/20/22 22:00 05/22/22 22:05 Sodium Chloride 0.9% 10 Ml Flush Syringe IV Not Given BID CHRISTIN Sodium Chloride 10 ml 05/20/22 19:16 Sodium Chloride 0.9% 10 Ml Flush Syringe IV PRN PRN LINE FLUSH Nutrition/Malnutrition Assess - Dietary Evaluation Nutrition/Malnutrition Findings: Nutrition Notes Start: 05/21/22 17:16 Freq: Status: Active Protocol: Document 05/21/22 17:16 GIOVANY (Rec: 05/21/22 17:31 GIOVANY [id number]) Nutrition Notes Need for Assessment generated from: manager privacy,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 Current Diet Cardiac Diet (since D 05/20). Labs/Tests 05/21: Ca 8.2. Pertinent Medications 05/21: Nutritionally unremarkable. 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 Weight Status Appropriate Subjective/Other Information RD consult for risk of malnutrition assessment. No reports available of Pt's PO intake of meals at the time , will assess at F/U. Pt is on Room Air, O2 saturation @ 97%, according to Physical Assessment History notes. Pt has missing teeth, according to Physical Assessment History notes. Pt presents an unspecified area of concern for skin risk at the time, according to Physical Assessment History notes. Pt shows no signs of concern for risk of malnutrition at the time, according to Physical Assessment History notes. Percent of energy/protein needs met: Prescribed Cardiac Diet provides for energy/protein needs (2,230 Kcal/85 g) during LOS. Burn Absent Trauma Absent GI Symptoms None Food Allergy No Skin Integrity/Comment Unspecifies area of concern. 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 No Is Patient Ambulatory and/or Out of Bed Yes REE-([place]-ambulatory/OOB) [ 1379.300 NUTR.MSJOOB] Kcal/Kg value to use for calculation 25 Approximate Energy Requirements Using 1465 kcal/Kg Calculation Used for Recommendations Kcal/kg Additional Notes Protein: 1-1.2 g/Kg ABW; 59-71 g/day. Fluids: 1 ml/Kcal, or as per MD. Nutrition Intervention Change Diet Order: Continue Cardiac Diet as tolerated. Follow-Up By: 05/28/22 Additional Comments Continue monitoring food tolerance, %PO intake of meals , and BM.
--- NOTE | 2022-05-23 18:06 | Electrocardiograph Report ---
[facility] Test Date: 2022-05-20 Test Time: 15:35:06 Pat Name: CARLOZ MONTEJO Department: Room: A472 1 Gender: F Brick Pointer: NURSE : 1945 Requested By: BRANDEE HOGUE Order Number: [id number] Reading MD: Bethany Mcguire Measurements Intervals [place] Rate: 51 P: 20 CA: 215 QRS: 47 QRSD: 97 T: 49 QT: 490 QTc: 452 Interpretive Statements Sinus bradycardia Borderline prolonged CA interval No previous ECG available for comparison Electronically Signed On 05-23-2022 18:05:42 EDT by Bethany Mcguire
[2022-05-23] MEDS: ACETAMINOPHEN 325 MG TAB PO PRN (23:05)
--- NOTE | 2022-05-24 08:01 | Discharge Summary ---
Providers - Providers Date of Admission: 05/20/22 19:16 Date of discharge: 05/24/22 Attending physician: EVERARDO SMITH 05/22/22 10:47 Physical Therapy Evaluation and Treat [CONS] Routine Comment: Reason For Exam: dizziness, evaluate gait Primary care physician: CAMPAIGN WORKER Hospitalization Reason for admission: dizziness Condition: Stable Hospital course: 77 YO Female with Vascular Dementia, Cerebral Atherosclerosis, HTN, Malnutrition presents to ED for evaluation. On admission, patient was confused with diminished cognition and provided minimal history. 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 Patient, reportedly, on exam had some suprapubic and abdominal tenderness. Patient initially admitted with diagnosis of UTI. However, urinalysis was not indicative of UTI. The patient was admitted with diagnosis of SIRS, leukocytosis, hypokalemia, acute encephalopathy and abdominal pain Hospital course: 05/21/2022. Await CT scan of the abdomen for further evaluation. Patient on admission with significant leukocytosis which has improved. No obvious source of infection at this time. Continue empiric IV antibiotics. PT/OT evaluation 05/22/2022. CT scan of the abdomen negative. Patient's mental status is back to baseline per the daughter who is at the bedside. I suspect patient had more or less dizziness than true confusion. Daughter reports that patient still complains of dizziness. I suspect patient may have a component BPV. Await physical therapy evaluation. Start meclizine. Patient with no lateralizing si gns or symptoms or focal findings suggestive of CVA 05/23/2022. Await physical therapy evaluation. Meclizine ordered for BPV. Check MRI to rule out CVA 05/24/2022. Physical therapy recommends patient to be discharged home with a walker and home health PT. Patient will be continued on meclizine for probable BPV. MRI was completed and awaiting results. If MRI negative for CVA, patient will be discharged home and is to follow-up with PCP. MRI was completed and noted to have a right cerebellar infarct in the AICA territory/distribution. The patient was inadvertently discharged prior to MRI resulting. Therefore, I called the granddaughter who speaks Thai and reported that she would let her mother and grandmother know of the findings. Also, called in medications of aspirin and Lipitor. I discussed the case with neurology (Karen) who agreed with the discharge medications and recommends close follow-up with cardiology to rule out thromboembolic phenomena. Dedicated discharge time 35 minutes Disposition: 01 HOME / SELF CARE / HOMELESS Final Discharge Diagnosis (Prints w/discharge instructions): Right cerebellar infarct, SIRS, leukocytosis, hypokalemia, acute encephalopathy, abdominal pain Core Measure Documentation - Palliative Care Palliative Care/ Comfort Measures: Not Applicable - Core Measures Any of the following diagnoses?: stroke - Stroke Discharge Requirements Statin for LDL = or >70 mg/dl on DC: Yes Anticoag for atrial fib/atrial flutter: Not Applicable Antithrombotic for ischemic stroke: Yes Exam - Constitutional Vitals: Temp Pulse Resp BP Pulse Ox 98.0 F 66 15 167/88 96 05/24/22 04:19 05/24/22 07:21 05/24/22 04:19 05/24/22 07:21 05/24/22 07:21 General appearance: Present: no acute distress, well-nourished - EENT Eyes: Present: PERRL ENT: hearing intact, clear oral mucosa - Neck Neck: Present: supple, normal ROM - Respiratory Respiratory effort: normal Respiratory: bilateral: CTA - Cardiovascular Heart Sounds: Present: S1 & S2. Absent: rub, click - Extremities Extremities: pulses symmetrical, No edema Peripheral Pulses: within normal limits - Abdominal General gastrointestinal: Present: soft, non-tender, non-distended, normal bowel sounds Female genitourinary: Present: normal - Integumentary Integumentary: Present: clear, warm, dry - Musculoskeletal Musculoskeletal: gait normal, strength equal bilaterally - Psychiatric Psychiatric: appropriate mood/affect, intact judgment & insight - Neurologic Neurologic: CNII-XII intact, moves all extremities Plan Activity: advance as tolerated Weight Bearing Status: Weight Bear as Tolerated Diet: regular Durable Medical Equipment Needed Upon Discharge: Walker-Rolling Follow up with: PRIMARY CARE, [Primary Care Provider] - 3-5 Days Prescriptions: Meclizine [Antivert] 25 mg PO Q8H PRN #30 tablet PRN Reason: Vertigo
[2022-05-24] MEDS: cefTRIAXone/NS 1 GM/50 ML 1 GM/50 ML BAG IV SCH (09:11)
--- NOTE | 2022-05-24 11:44 | Magnetic Resonance Report ---
MR brain wo con INDICATION / CLINICAL INFORMATION: AMS. TECHNIQUE: Multiplanar, multisequence MR images of the brain were obtained. COMPARISON: CT head May 20 2022 FINDINGS: INTRACRANIAL: Small area of restricted diffusion seen within the right cerebellum and right middle ce rebellar peduncle. The right vertebral artery flow void is not well seen. No hemorrhage. Ventricular caliber is normal. No extra-axial collection. No mass. No herniation. Major intracranial vascular fl ow voids are preserved. Small quantity of periventricular and centrum semiovale T2 white matter hyper intensities most consistent with mild sequela of chronic microvascular disease. T2 signal seen in the right internal jugular vein is likely slow flow. ORBITS: No significant abnormality of visualized orbits. SINUSES / MASTOIDS: No significant abnormality of visualized sinuses and mastoid air cells. ADDITIONAL FINDINGS: None. IMPRESSION: 1. 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 A normal right vertebral artery flow void is not seen and could be occluded versus diminutive in caliber. Can obtain CTA head and nec k if indicated. Signer Name: Tio Zamarripa MD Signed: 05/24/2022 11:40 AM Workstation Name: [id number]
[2022-05-24 18:23] VITALS: BP 158/70
== END 2022-05-24 12:30 | disposition home health service (06) | DRG 64 ==
LOC: EDUNIT# → ED 12:44 → 4A 19:16
PROVIDERS: ADMIT Internal Medicine; ATTEND Hospitalist
DX: I63.9 Cerebral infarction, unspecified (principal); G93.41 Metabolic encephalopathy; N39.0 Urinary tract infection, site not specified; R65.10 Systemic inflammatory response syndrome (SIRS) of non-infectious origin without acute organ dysfunction; E46 Unspecified protein-calorie malnutrition; I10 Essential (primary) hypertension; E87.6 Hypokalemia; K57.90 Diverticulosis of intestine, part unspecified, without perforation or abscess without bleeding; F01.50 Vascular dementia, unspecified severity, without behavioral disturbance, psychotic disturbance, mood disturbance, and anxiety; I67.2 Cerebral atherosclerosis; Z68.22 Body mass index [BMI] 22.0-22.9, adult
CPT/HCPCS: 36415; 70450; 70551; 71045; 74177; 80048; 80053; 80307; 81001; 82550; 82962; 83690; 83880; 84484; 85025; 85610; 86140; 87040; 93005; 94640; G0378; J0696; J2270; J2405; J7030; Q9967